=== PATIENT | male | born 1990 | race Asian ===

== ENCOUNTER 2019-10-22 18:40 | Emergency (ER) | payer OTHER, SELFPAY ==
[2019-10-22 18:59] VITALS: BP 141/93; PULSE 87; RESP 16; TEMP 37.3; O2SAT 100; BMI 23.1
[2019-10-22 19:00] VITALS: BP 139/85; PULSE 65; RESP 20; O2SAT 100
[2019-10-22] MEDS: PROPARACAINE 0.5% OPHTH SOL 1 DROPS EYE-RIGHT (19:33)
[2019-10-22] MEDS: FLUORESCEIN 1 MG STRIP EYE-RIGHT (19:34)
[2019-10-22] MEDS: OFLOXACIN 0.3% OPHTH 5 ML 2 DROPS EYE-RIGHT (20:00)
[2019-10-22] MEDS: IBUPROFEN 400 MG TABLET PO (20:01)
[2019-10-22] MEDS: TET,DIPH,PERTUSS(ACELL),VAC/PF 0.5 ML SYRINGE IM (20:02)
[2019-10-22] MEDS: TRAMADOL 50 MG PREPACK 1 BOTTLE MISC (20:41)
--- NOTE | 2019-10-23 01:07 | ED_ITS ---
HPI - Eye Problem <PATITO Fischer - Last Filed: 10/23/19 01:32> General Chief complaint: Eye Problems Stated complaint: R eye poked, red, Asthma out of Rx, nausea Time Seen by Provider: 10/22/19 19:17 Source: patient Mode of arrival: Ambulatory Limitations: no limitations History of Present Illness HPI Narrative: This is 29 year old male, smoker, who presents to ED with family with chief complain of right eye injury after he got poked by a bamboo stick. Patient reports the bamboo stick somehow flicked and hit his inner lower eye. Patient denies vision changes from this but some discomfort and rated as 2 to 3/10 at this time. Patient is unsure of last tetanus immunization. Patient also is requesting refill for albuterol medication for his asthma. He recently moved from [place] and does not have refill for this medication. Related Data Previous Rx's Medication Instructions Recorded albuterol sulfate 2 inhalation INHALATION Q4-6H PRN 10/22/19 #18 gram Allergies Allergy/AdvReac Type Severity Reaction Status Date / Time No Known Drug Allergies Allergy Verified 10/22/19 18:59 Review of Systems <PATITO Fischer - Last Filed: 10/23/19 01:32> Review of Systems Narrative: General: Denies fever, chills, fatigue, malaise, sweats. HEENT: See HPI Respiratory: Denies dyspnea, cough, wheezing, hemoptysis, sputum. Cardiovascular: Denies chest pain, palpitations, orthopnea, edema. Gastrointestinal: Denies nausea, vomiting, abdominal pain, diarrhea, constipation, melena. : Denies dysuria, frequency, incontinence, hematuria, urinary retention. Musculoskeletal: Denies weakness, joint pain or bony pain. Skin: Denies rash, skin lesions, or other. Neurologic: Denies weakness, headache, numbness, change in speech, confusion, seizures, incoordination. Psychiatric: No concerning psychosocial issues. 12-point review of systems is negative except for those stated above. Patient History <PATITO Fischer - Last Filed: 10/23/19 01:32> Medical History Asthma (Acute) Social History Smoking Status: Current every day smoker Smoking Status: Current every day smoker tobacco type: cigarettes Alcohol type: beer Substance Use Type: marijuana Exam <PATITO Fischer - Last Filed: 10/23/19 01:32> Narrative Exam Narrative: General appearance: well developed, well nourished, in no acute distress. Head: normocephalic, atraumatic, no scalp lesions, non-tender. ENT: Hearing grossly intact. Nose without bleeding, purulent discharge or deviation. Facial sinuses nontender to palpate. Mucous membrane moist, no mucosal lesion. Throat without erythema, tonsillar hypertrophy or exudate. Uvula in midline, airway patent. Neck/Thyroid: neck supple, full range of motion, no visible masses or meningeal signs. No JVD, non-tender without lymphadenopathy. Skin: no suspicious rashes, lesions over visible areas. Warm and dry and appropriate color for ethnicity. Heart: no clubbing, no cyanosis, no edema. Lungs: Breathing even and unlabored. No stridor. No accessory muscles used. Able to speak in full sentences. Chest: normal shape and expansion. Abdomen: non-obese, non-distended. Neurologic: alert and oriented. 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 Psych: good eye contact, normal affect. Initial Vital Signs Initial Vital Signs: Vital Signs Temperature 99.2 F 10/22/19 18:59 Pulse Rate 87 10/22/19 18:59 Respiratory Rate 16 10/22/19 18:59 Blood Pressure 141/93 H 10/22/19 18:59 Pulse Oximetry 100 10/22/19 18:59 Eyes General: appearance normal, both eyes and all related structures Alignment and Position: alignment normal Periorbital: periorbital findings normal Eyelids: eyelids normal Conjunctivae: conjunctival abnormality right conjunctival injection localized (medial palpebral conjunctiva injection) Sclera: sclerae normal Cornea: corneas abnormal and fluorescein used (uptake of R eye inner lower region around 5 o'clock, a large uptake of 6mm) Pupils: PERRL, normal by confrontation and accommodation normal EOM: EOM intact bilaterally Direct ophthalmoscopy: normal light reflex Other: IOP 19 <Ej Hernandez DO - Last Filed: 10/23/19 01:35> Initial Vital Signs Initial Vital Signs: Vital Signs Temperature 99.2 F 10/22/19 18:59 Pulse Rate 87 10/22/19 18:59 Respiratory Rate 16 10/22/19 18:59 Blood Pressure 141/93 H 10/22/19 18:59 Pulse Oximetry 100 10/22/19 18:59 Scores <[facility] CharmainePATITO - Last Filed: 10/23/19 01:32> GCS [place] coma scale eye opening: Spontaneous Rick coma scale verbal response: Orientated [place] coma scale motor response: Obey commands Rick coma scale total score: 15 Course <[facility] cord[facility] - Last Filed: 10/23/19 01:32> Orders Ordered: Discontinued Medications Diphtheria/Tetanus/Acell Pertussis (Adacel) 0.5 ml IM .ONCE ONE Stop: 10/22/19 19:43 Last Admin: 10/22/19 20:02 Dose: 0.5 ml Documented by: JIM Fluorescein Sodium (Ful-Radha) 1 mg EYE-RIGHT NOW ONE Stop: 10/22/19 19:23 Last Admin: 10/22/19 19:34 Dose: 1 mg Documented by: JIM Ibuprofen (Advil) 400 mg PO NOW ONE Stop: 10/22/19 19:43 Last Admin: 10/22/19 20:01 Dose: 400 mg Documented by: JIM Ofloxacin (Ocuflox 0.3% Ophth) 2 drops EYE-RIGHT NOW ONE Stop: 10/22/19 19:43 Last Admin: 10/22/19 20:00 Dose: 2 drop Documented by: JIM Proparacaine HCl (Parcaine 0.5% Ophth Celeste) 1 drops EYE-RIGHT NOW ONE Stop: 10/22/19 19:27 Last Admin: 10/22/19 19:33 Dose: 2 drop Documented by: JIM Tramadol HCl (Ultram 50mg Prepack) 1 bottle MISC SEEINSTR ONE Stop: 10/22/19 20:35 Last Admin: 10/22/19 20:41 Dose: 1 bottle Documented by: JIM Vital Signs Vital signs: Vital Signs - 8 hr 10/22/19 18:59 10/22/19 19:00 Temperature 99.2 F Pulse Rate 87 65 Respiratory Rate 16 20 Blood Pressure 141/93 H Blood Pressure [Left Arm] 139/85 Pulse Oximetry 100 100 <Ej Hernandez DO - Last Filed: 10/23/19 01:35> Orders Ordered: Discontinued Medications Diphtheria/Tetanus/Acell Pertussis (Adacel) 0.5 ml IM .ONCE ONE Stop: 10/22/19 19:43 Last Admin: 10/22/19 20:02 Dose: 0.5 ml Documented by: JIM Fluorescein Sodium (Ful-Radha) 1 mg EYE-RIGHT NOW ONE Stop: 10/22/19 19:23 Last Admin: 10/22/19 19:34 Dose: 1 mg Documented by: JIM Ibuprofen (Advil) 400 mg PO NOW ONE Stop: 10/22/19 19:43 Last Admin: 10/22/19 20:01 Dose: 400 mg Documented by: JIM Ofloxacin (Ocuflox 0.3% Ophth) 2 drops EYE-RIGHT NOW ONE Stop: 10/22/19 19:43 Last Admin: 10/22/19 20:00 Dose: 2 drop Documented by: JIM Proparacaine HCl (Parcaine 0.5% Ophth Celeste) 1 drops EYE-RIGHT NOW ONE Stop: 10/22/19 19:27 Last Admin: 10/22/19 19:33 Dose: 2 drop Documented by: JIM Tramadol HCl (Ultram 50mg Prepack) 1 bottle MISC SEEINSTR ONE Stop: 10/22/19 20:35 Last Admin: 10/22/19 20:41 Dose: 1 bottle Documented by: JIM Vital Signs Vital signs: Vital Signs - 8 hr 10/22/19 18:59 10/22/19 19:00 Temperature 99.2 F Pulse Rate 87 65 Respiratory Rate 16 20 Blood Pressure 141/93 H Blood Pressure [Left Arm] 139/85 Pulse Oximetry 100 100 MDM - Eye Problem <PATITO Fischer - Last Filed: 10/23/19 01:32> Differential Diagnosis Differential diagnosis: Likely corneal abrasion and corneal ulcer Medical Records Attestation: I reviewed the patient's medical records. MDM Narrative Medical decision making narrative: This is a 29 year old male presents to ED with right eye injury at 4:30 p.m. today after he was hit by member stick. No visual deficit on right eye. V.A. of OD 20/25 and OS 20/30. Tdap was updated today. Physical exam with fluorescein stain and Wood's lamp appreciated corneal/sclera abrasion at 5:00 a.m. without obvious foreign body noted. Patient was medicated with ofloxacillin eye drops and advised to use 2 drops 4 times a day next 5-7 days and a referral to semiconductor packages leak tester to be seen next a day or 2 for an re-evaluation. Patient discharged to home with prepack of tramadol for severe pain which patient reports before he leaves to ED and advised to use Tylenol and or Motrin as needed as baseline. Return precautions were discussed with the patient and Patient verbalized understanding and agrees with the treatment plan. Discharge Plan Departure Patient Disposition: Home Clinical Impression: History of asthma Corneal abrasion Qualifiers: Encounter type: initial encounter Laterality: right Qualified Code(s): S05.01XA - Injury of conjunctiva and corneal abrasion without foreign body, right eye, initial encounter Discharge Date/Time: 10/22/19 20:47 Instructions: DI for Corneal Abrasion Activity Restrictions/Additional Instructions: You have been diagnosed with [right corneal abrasion add 5-6 o'clock in right eye. You were dc to home with Ofloxacin 0.3% 2 drops 4 times a day next 5 day s.]. What to do: *Take your medications as directed. You can take Tylenol and or Motrin as needed for discomfort. Tylenol 650 mg 1000 mg up to 4 times a day as needed for pain. Ibuprofen 400 mg 3 times a day with food for pain. *Follow up with your primary care provider in 2-3 days, call for an appointment. Please follow up with semiconductor packages leak tester next 1-2 days for follow-up on evaluation on her eyes. Please call the number to follow up as provided here. Let them know you were seen in the ED and that we asked you to be seen in follow up. *Return to ED if you have any new, worsening, or concerning symptoms, such as [decreased vision, severe pain, purulent discharge from eye, unable to move her eyeballs, chest pain, breathing difficulty or any acute concerns]. Prescriptions: New albuterol sulfate 90 mcg/actuation HFA aerosol inhaler 2 inhalation INHALATION Q4-6H PRN (Reason: shortness of breath or wheezing) Qty: 18 RF: 0 Referrals: Benedicto Matt MD [Physician] - <Ej Hernandez DO - Last Filed: 10/23/19 01:35> Sign Out Provider Sign Out Attestation: Dr Hernandez Co-Sign Statement: I was available for consultation during this patient's emergency department visit. This chart is signed by myself for administrative purposes only. I did not have direct contact with this patient during this visit. They were seen independently by the APC.
== END 2019-10-22 20:47 | disposition home or self-care (01) ==
PROVIDERS: Emergency Provider Nurse Practitioner Family
DX: S05.01XA Injury of conjunctiva and corneal abrasion without foreign body, right eye, initial encounter (principal); Z87.09 Personal history of other diseases of the respiratory system; Z23 Encounter for immunization; W22.8XXA Striking against or struck by other objects, initial encounter
CPT/HCPCS: 90471; 99283; 90715